=== PATIENT | female | born 1980 | race Caucasian/White ===

== ENCOUNTER 2017-01-25 20:48 | Emergency (ER) | payer BC ==
[~2017-01-25 20:48] MED LIST: COPAXONE40 MG/1 M1 SQ; HYDROCODON-ACE1 EA16 PO; HYDROCODON-ACE1 EA17 PO; IBUPROFEN800 M1 PO; KLONOPIN1 M1 PO; NORCO 5-325 TA1 EACH PO; NORCO 7.5-3251 EACH PO; PAXIL20 M1 PO; ROBAXIN500 M1 PO
[2017-01-25] MEDS ORDERED: PROZAC20 M3 PO (21:10)
== END 2017-01-25 23:45 ==
LOC: EDMED 20:48
DX: F11.90 Opioid use, unspecified, uncomplicated (principal); F17.200 Nicotine dependence, unspecified, uncomplicated; Z76.0 Encounter for issue of repeat prescription
CPT/HCPCS: J1885

== ENCOUNTER 2017-01-27 16:21 | Emergency (ER) | payer BC ==
[~2017-01-27 16:21] MED LIST changes: +PROZAC20 M3 PO
[2017-01-27] MEDS ORDERED: ULTRAM50 M1 PO (16:31)
[2017-01-27] MEDS ORDERED: NEURONTIN600 M1 PO (16:32)
[2017-01-27] MEDS ORDERED: HYDROCODON-ACE1 EA17 PO (16:33)
== END 2017-01-27 16:47 ==
LOC: EDMED 16:21
DX: F11.90 Opioid use, unspecified, uncomplicated (principal); G89.29 Other chronic pain; Z76.0 Encounter for issue of repeat prescription; G35 Multiple sclerosis